=== PATIENT | female | born 1985 | race Caucasian/White ===

== ENCOUNTER 2017-06-28 18:36 | Emergency (ER) | payer MEDICAID ==
[~2017-06-28] VITALS: Ht 170.2 cm; Wt 102.1 kg
[2017-06-28 19:00] VITALS: BP 143/60
== END 2017-06-28 19:50 | disposition home or self-care (01) ==
LOC: ER 18:36
DX: M26.69 Other specified disorders of temporomandibular joint (principal); I10 Essential (primary) hypertension